=== PATIENT | female | born 1990 | race Caucasian/White ===

== ENCOUNTER 2020-05-06 22:20 | Emergency (ER) | payer BC, OTHER ==
--- NOTE | 2020-05-06 22:31 | PDOC ---
History of Present Illness - General Chief Complaint: Bite Stated Complaint: DOG BITE R BREAST Time Seen by Provider: 05/06/20 22:27 History Source: Patient - History of Present Illness Initial Comments: 05/06/20 22:28 30 year old female reports that she was bite to right breast by her dog. dogs vaccines up to date. patient sustained a laceration to right breast at 3 o'clock location ~ 5 cm cuts into the aerola last tetanus unknown 05/06/20 23:12 Past History - Medical History Allergies/Adverse Reactions: Allergies Allergy/AdvReac Type Severity Reaction Status Date / Time No Known Allergies Allergy Verified 05/27/15 12:12 Home Medications: Ambulatory Orders Metformin HCl [Glucophage] 1,000 mg PO BID 05/27/15 Ondansetron HCl [Zofran] 4 mg PO BID PRN #10 tablet 05/27/15 Ranitidine HCl [Zantac] 150 mg PO DAILY #30 tablet 05/27/15 Amoxicillin/Potassium Clav [Augmentin 875-125 Tablet] 1 each PO BID #14 tablet 05/06/20 - Psycho-Social/Smoking History Smoking History: Never smoked Review of Systems - Review of Systems Able to Perform ROS?: Yes Is the patient limited Sami proficient: No Integumentary: Yes: Other (dog bite) *Physical Exam - Vital Signs 05/06/20 22:30 Last Vital Signs Temp Pulse Resp BP Pulse Ox 97.9 F 114 H 20 114/72 100 05/06/20 22:27 05/06/20 22:27 05/06/20 22:27 05/06/20 22:27 05/06/20 22:27 - Physical Exam General Appearance: Yes: Appropriately Dressed Integumentary: positive: Other (~ 5 cm irregular laceration ) Neurologic: positive: Fully Oriented, Alert, Normal Mood/Affect Procedures - Consent Consent obtained: Verbal, From Patient - Laceration/Wound Repair Right Breast Wound Length: 2.6 to 5.0 cm (5 cm irregular laceration to at 3o'clock location cuts into aerola) Irrigated w/ Saline: Yes Wound Repaired With: Steri-strips Progress: Plastic surgery recommended steristrips and outpatient follow up 05/06/20 23:20 wound flushed with 50 ml normal saline. bacitracin applied 05/07/20 06:00 ED Progress Note - Progress Note Progress Note: A: dog bite to right breast p: see procedure note [plastic surgery consult 05/06/20 23:23 Dr. Juarez (plastic surgeon at [facility] called for consult.) advised to apply steristrip to breast start augmentin. patient to follow up in the clinic outpatient for wound check. 05/06/20 23:31 05/07/20 06:00 Discharge - Discharge Information Problems reviewed: Yes Clinical Impression/Diagnosis: Open wound of right side of chest wall due to dog bite Dog bite Qualifiers: Encounter type: initial encounter Qualified Code(s): W54.0XXA - Bitten by dog, initial encounter Disposition: HOME - Additional Discharge Information Prescriptions: Amoxicillin/Potassium Clav [Augmentin 875-125 Tablet] 1 each PO BID #14 tablet - Follow up/Referral Referrals: ON STAFF,NOT [Primary Care Provider] - Joaquín Beckett MD [Staff Physician] - Call tomorrow Phillip Brewer MD [Staff Physician] - Call tomorrow - Patient Discharge Instructions Patient Printed Discharge Instructions: DI for Dog Bite Additional Instructions: please call plastic surgery clinic Dr. Werner [address] [place] [address], [address] [place] [address] take augmentin as prescribed. keep wound clean and dry - Post Discharge Activity Work/Back to School Note: Back to Work
[2020-05-06 22:37] VITALS: TEMP 97.9; BMI 41.5
[2020-05-06] MEDS ORDERED: DIPHTH,PERTUSS(ACELL),TET 0.5 ML DISP.SYRIN IM ONE ×2 (22:40→23:18)
--- NOTE | 2020-05-06 22:43 | PDOC ---
*Physical Exam - Vital Signs Last Vital Signs Temp Pulse Resp BP Pulse Ox 97.9 F 114 H 20 114/72 100 05/06/20 22:27 05/06/20 22:27 05/06/20 22:27 05/06/20 22:27 05/06/20 22:27 Medical Decision Making - Medical Decision Making 05/06/20 22:43 Patient seen by the advanced practice provider under my supervision. Ancillary testing reviewed as necessary. I agree with plan as outlined by the advanced practice provider. Discharge - Discharge Information Problems reviewed: Yes Clinical Impression/Diagnosis: Dog bite - Follow up/Referral Referrals: ON STAFF,NOT [Primary Care Provider] - - Patient Discharge Instructions - Post Discharge Activity
[2020-05-06 23:29] VITALS: BP 118/71; PULSE 96
== END 2020-05-07 00:13 | disposition home or self-care (01) ==
LOC: JER 22:20
PROC: 3E0234Z Introduction of Serum, Toxoid and Vaccine into Muscle, Percutaneous Approach (ICD-10-PCS; principal; 2020-05-06)
DX: S21.051A Open bite of right breast, initial encounter (principal); W54.0XXA Bitten by dog, initial encounter
CPT/HCPCS: 90715; 99283-25